=== PATIENT | female | born 1995 | race Caucasian/White ===

== ENCOUNTER 2025-01-25 21:12 | Emergency (ER) | payer BC, SELFPAY ==
[2025-01-25 21:14] VITALS: BP 108/83
[2025-01-25 21:35] LABS: Urine Character Clear (Clear)
[2025-01-25 21:38] LABS: Hematocrit 38.4 % (37.0-47.0); Hemoglobin 13.5 g/dL (12.0-16.0); Mean Corp Hgb Conc. 35.2 g/dL (33.0-37.0); Mean Corpuscular Volume 85.1 fL (81.0-99.0); Nucleated Red Blood Cells % 0 %; Platelet Count 227 10^3/uL (130-400); Red Cell Dist. Width 11.9 % (11.5-14.5)
[2025-01-25 21:43] LABS: Urine Red Blood Cell 0-2 /HPF (0-2); Urine Squamous Cell >30 /LPF (Few)
[2025-01-25 22:02] LABS: HCG, Serum Qualitative Screen Negative
[2025-01-25 22:04] LABS: ALT (SGPT) 14 U/L (0-35); AST (SGOT) 21 U/L (14-36); Albumin 4.4 g/dl (3.5-5.0); Alkaline Phosphatase 38 U/L (38-126); Blood Urea Nitrogen 20 mg/dl (7-17); Calcium 9.3 mg/dl (8.4-10.2); Carbon Dioxide 26 mmol/L (22-30); Chloride 104 mmol/L (98-107); Glucose 108 mg/dl (70-99); Lipase 210 U/L (23-300); Potassium 3.8 mmol/L (3.5-5.1); Sodium 136 mmol/L (135-145); Total Protein 7.2 g/dl (6.3-8.2); eGFR > 60.00
--- NOTE | 2025-01-25 23:47 | ED.GENMED ---
History of Present Illness
General
Chief Complaint: Abdominal Pain
Source: patient
Time Seen by Provider: 01/25/25 23:20
History of Present Illness
History of Present Illness:
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
vaginosis. Today patient states the pain got a little bit worse which is what ultimately prompted her to come to the ER. She notes that she had an endoscopy at the beginning of November which showed some mild gastritis, has been on omeprazole but
without much relief. She notes that associated with this she has had a more difficult time having bowel movements sometimes going 4 days without having a bowel movement. She has attempted Bentyl without relief. She denies any fevers, chills,
rigors. She notes tonight pain is not much different than what she has been experiencing over the last few months.
Past History
Past History
ED Past Medical History: None
ED Past Surgical History:
Social History
Tobacco: Non-smoker
Alcohol: None
Drug: None
Personal:
Living: with family
Review of Systems
Review of Systems
All Other Systems: ROS reviewed and negative except as documented in HPI and ROS
Phy Exam
Physical Exam
Physical Exam:
GENERAL: Alert , in no apparent distress
EYE: clear conjunctiva b/l
HEAD: NCAT
ENT: o/p clr, mmm.
CARDIAC: Regular rate and rhythm .
LUNGS: Clear breath sounds bilaterally, no acute respiratory distress, no wheezes/rales/rhonchi
ABDOMEN: Soft, without focal tenderness, no r/g, no cvat
NEUROLOGICAL: Alert and oriented
SKIN: Warm and dry, skin intact.
MUSCULOSKELETAL: No edema, well perfused.
PSYCH: Normal and appropriate interaction.
Scores
Heart Failure Risk
Heart Failure Risk Score: Not Applicable
Heart Score for Chest Pain Patients
STEMI patient?: Not applicable
Withdrawal Assessment of Alcohol
Withdrawal Assessment Completed?: Not applicable
Course
Orders/Labs/Results
Orders:
Orders
01/25/25 21:20
Test Result ONCE
01/25/25 21:27
Complete Blood Count/With Diff Urgent
Comprehensive Metabolic Panel Urgent
HCG, Serum Qualitative Screen Urgent
Comment: Notify provider if positive test present
Lipase Urgent
Urinalysis Reflex To Culture Urgent
Date Specimen was Collected: 01/25/25
Time Specimen was Collected: 21:20
Urine Microscopic Reflex Cult Urgent
Urine Culture Urgent
KARINA Source: U
Specimen Description:
Date Specimen was Collected: 01/25/25
Time Specimen was Collected: 21:20
Abnormal Lab Results
01/25/25
21:27
WBC 11.2 H 10^3/uL
(4.8-10.8)
Absolute Monos (auto) 0.8 H 10^3/uL
(0.1-0.6)
Absolute Eos (auto) 1.2 H 10^3/uL
(0-0.7)
Eosinophils % 10.5 H %
(0-6)
BUN 20 H mg/dl
(7-17)
Glucose 108 H mg/dl
(70-99)
Leukocyte Esterase Rfl 1+ A
(Negative)
Urine Bacteria (Reflex) Many A
(Negative)
Urine Albumin (Reflex) 3+ A
(Neg - Trace)
01/25/25 21:27
01/25/25 21:27
Vital Signs
Initial and Last Documented VS:
Initial Vital Signs
Temp Pulse Resp BP Pulse Ox
97.8 F 56 18 108/83 100
01/25/25 21:14 01/25/25 21:14 01/25/25 21:14 01/25/25 21:14 01/25/25 21:14
Last Documented Vital Signs
Temp Pulse Resp BP Pulse Ox
97.8 F 56 18 108/83 100
01/25/25 21:14 01/25/25 21:14 01/25/25 21:14 01/25/25 21:14 01/25/25 23:47
MDM/Problems Addressed
Differential Diagnosis Includes:
GERD
Gastritis
PUD
H. Pylori
Pancreatitis
Colitis
Celiac Disease
Food sensitivity
Slow transit constipation
IBS
Appy
Choley
MDM/Problems Addressed:
29-year-old female presenting to the ER for evaluation of acute on chronic abdominal pain, pain currently much better now than it was earlier this evening. Exam reassuring and without any focality. Patient notes that she has already had multiple
imaging studies done for this pain, she notes significant frustration at lack of diagnosis. Labs do reveal a very slight leukocytosis but are otherwise unremarkable. Offered repeat imaging studies however patient declines. Will trial Carafate for
symptomatic relief and encourage patient to contact her GI team this week for follow-up visit. Aware of return precautions to the ER.
*Pulse Oximetry
SaO2: 100
Oxygen Mode of Delivery: Room air
Patient hypoxic: no
*Critical Care Note
Total Time (30-74mins, 75-104mins- exclusive of procedures): Not Applicable
ED Attending Note
-
Portions of this chart may have been created with voice recognition software.� Occasional wrong word or��sound alike� substitutions may have occurred due to the inherent limitations of voice recognition software.
Discharge Plan
Departure
Patient Disposition: Home (Routine Discharge)
Date of Disposition: 01/25/25
Time of Disposition: 23:47
Patient with high blood pressure during this ER visit?: No
Discharge Problem:
Abdominal pain
Instructions: Abdominal Pain
Prescriptions:
New
sucralfate [Carafate] 100 mg/mL suspension
10 ml PO QID Qty: 500 0RF
Referrals:
Gisselle Villaseñor MD [Family Provider, Family Practice]
Interventions
Interventions:
*Risk Screen - Suicide Last Done: 01/25/25 21:14
Discharge Date and Time
Print Language: SRI LANKAN
== END 2025-01-26 00:43 | disposition home or self-care (01) ==
LOC: EMR 21:12
PROVIDERS: Emergency Medicine; EMERGENCY PHYSICIAN Emergency Medicine; FAMILY PHYSICIAN Family Medicine
DX: G89.29 Other chronic pain (principal); R10.9 Unspecified abdominal pain; D72.829 Elevated white blood cell count, unspecified; Z98.891 History of uterine scar from previous surgery
CPT/HCPCS: 99283; 80053; 81003; 81015; 83690; 84703; 85025; 87077; 87086